=== PATIENT | female | born 1950 | race African-American/Black ===

== ENCOUNTER 2018-12-01 08:48 | Day surgery (SDC) | payer BC ==
[2018-12-01] MEDS ORDERED: LACTATED RINGER'S 1,000 ML IV (10:30)
[2018-12-01] MEDS ORDERED: ONDANSETRON 4 MG INJ (10:57)
[2018-12-01] MEDS ORDERED: MIDAZOLAM 1 MG/ML 2 ML INJ (10:57)
[2018-12-01] MEDS ORDERED: NEOSTIGMINE 3 MG/3 ML SYRINGE (10:57)
[2018-12-01] MEDS ORDERED: CEFAZOLIN 1 GM INJ (10:57)
[2018-12-01] MEDS ORDERED: PROPOFOL 20 ML (10:57)
[2018-12-01] MEDS ORDERED: ROCURONIUM 50 MG INJ (10:57)
[2018-12-01] MEDS ORDERED: FENTAnyl 50 MCG/ML VIAL (10:57)
[2018-12-01] MEDS ORDERED: DEXAMETHASONE 4 MG/ML 5 ML INJ (10:57)
[2018-12-01] MEDS ORDERED: GLYCOPYRROLATE 0.4 MG INJ (10:57)
[2018-12-01] MEDS: SOD CHLORIDE 0.9% 1,000 ML IV (11:59)
[2018-12-01] MEDS ORDERED: TRIMETHOBENZAMIDE 100 MG/ML VIAL IM (12:00)
[2018-12-01] MEDS ORDERED: EPHEDrine 25 MG/5 ML SYG IV (12:00)
[2018-12-01] MEDS ORDERED: HYDROmorphONE 1 MG/5 ML IV SYRINGE IV ×3 (12:00)
[2018-12-01] MEDS ORDERED: FENTAnyl 50 MCG/ML VIAL IV ×3 (12:00)
[2018-12-01] MEDS ORDERED: ONDANSETRON 4 MG INJ IV (12:00)
[2018-12-01] MEDS ORDERED: IPRATROPIUM (NEB) 0.5 MG/2.5 ML AMP HHN (12:00)
[2018-12-01] MEDS ORDERED: OXYCODONE/ACETAMINOPHEN (5/325) TAB PO ×4 (12:00)
[2018-12-01] MEDS ORDERED: hydrALAzine 20 MG INJ IV (12:00)
[2018-12-01] MEDS ORDERED: morphine 2 MG INJ IV (12:00)
[2018-12-01] MEDS ORDERED: LABETALOL HCL 20MG INJ IV (12:00)
[2018-12-01] MEDS ORDERED: MIDAZOLAM 1 MG/ML 2 ML INJ IV (12:00)
[2018-12-01] MEDS ORDERED: ALBUTEROL 0.083% (NEB) 2.5 MG/3 ML AMP HHN (12:00)
[2018-12-01] MEDS ORDERED: DIPHENHYDRAMINE 50 MG INJ IV (12:00)
[2018-12-01] MEDS: ROPIVACAINE 0.5 % 30 ML VIAL (12:29)
[2018-12-01] MEDS: POVIDONE IODINE 10% 28.4 GM OINT (12:29)
[2018-12-01] MEDS: MEPERIDINE 25 MG INJ IV (14:02)
[2018-12-01] MEDS: ONDANSETRON 4 MG INJ IV (14:03)
== END 2018-12-01 16:14 | disposition home or self-care (01) ==
LOC: SDS 08:48
DX: S83.271A Complex tear of lateral meniscus, current injury, right knee, initial encounter (principal); M22.41 Chondromalacia patellae, right knee; X58.XXXA Exposure to other specified factors, initial encounter
CPT/HCPCS: 29881; 71045